=== PATIENT | male | born 1975 | race American Indian/Alaskan Native ===

== ENCOUNTER 2017-07-27 02:45 | Emergency (ER) | payer SELFPAY ==
[2017-07-27 02:59] VITALS: BP 111/78
[2017-07-27] MEDS ORDERED: FUL-GLO OP ONE (03:01)
[2017-07-27] MEDS ORDERED: TETRACAINE 0.5% OU ONE (03:03)
--- NOTE | 2017-07-27 06:03 | Emergency Department Report ---
ED Eye Problem HPI - General Chief complaint: Eye Problems Stated complaint: FLASH BURN EYES Time Seen by Provider: 07/27/17 05:56 Source: patient Mode of arrival: Ambulatory Limitations: No Limitations - History of Present Illness Initial comments: Patient is a 41-year-old male who presents to ED complaining of bilateral eye pain and redness times today. Patient states yesterday he was at work when a coworker was loading some mental. Patient states he did not have the protective eye on Wednesday directly at the [employer] after voiding fine which caused him to start experiencing eye pain. blurry vision and sensitivity to light. She states he objects for exercise. He denies loss of vision, headache. MD chief complaint: eye pain, eye redness -: Sudden Onset Description: sudden Location: both eyes Place: work If Injury: UV exposure Eye Symptoms: pain, itching, blurry vision, photophobia Severity: moderate Severity scale (0 -10): 4 Consistency: constant Associated Symptoms: none. denies: neck pain, nausea/vomiting, cough, rhinorrhea, fever - Related Data Previous Rx's Medication Instructions Recorded Last Taken Type Ketorolac Tromethamin 0.4%(Nf) 1 - 2 drops OP TID #5 ml 07/27/17 Unknown Rx [Acular Ls 0.4% Ophth Mary] Ofloxacin 0.3% [Ocuflox] 1 - 2 drops OP BID #5 ml 07/27/17 Unknown Rx Allergies Allergy/AdvReac Type Severity Reaction Status Date / Time Penicillins Allergy Rash Verified 07/27/17 02:53 ED Review of Systems ROS: Stated complaint: FLASH BURN EYES Other details as noted in HPI Constitutional: denies: chills, fever Eyes: denies: eye pain, eye discharge, vision change ENT: denies: ear pain, throat pain Respiratory: denies: cough, shortness of breath, wheezing Cardiovascular: denies: chest pain, palpitations Endocrine: no symptoms reported Gastrointestinal: denies: abdominal pain, nausea, diarrhea Genitourinary: denies: urgency, dysuria Musculoskeletal: denies: back pain, joint swelling, arthralgia Skin: denies: rash, lesions Neurological: denies: headache, weakness, paresthesias Psychiatric: denies: anxiety, depression Hematological/Lymphatic: denies: easy bleeding, easy bruising ED Past Medical Hx - Past Medical History Previous Medical History?: No - Social History Smoking Status: Current Every Day Smoker - Medications Home Medications: Home Medications Medication Instructions Recorded Confirmed Last Taken Type Ketorolac Tromethamin 0.4%(Nf) 1 - 2 drops OP TID #5 ml 07/27/17 Unknown Rx [Acular Ls 0.4% Ophth Mary] Ofloxacin 0.3% [Ocuflox] 1 - 2 drops OP BID #5 ml 07/27/17 Unknown Rx ED Physical Exam - General Limitations: No Limitations General appearance: alert, in no apparent distress - Head Head exam: Present: atraumatic, normocephalic - Eye Eye exam: Present: normal appearance, PERRL, EOMI, conjunctival injection. Absent: periorbital swelling, periorbital tenderness Pupils: Present: normal accommodation - Expanded Eye Exam Expanded Eyelids: Normal Inspection: Right Pupils: Regular, Round: Bilateral, Reactive: Bilateral Sclera/Conjunctival: Normal Inspection: Bilateral Anterior chamber: Normal Inspection: Bilateral Posterior chamber: Normal Inspection: Bilateral Visual acuity (R) = 20/: 70 Visual acuity (L) = 20/: 50 With correction: No - ENT ENT exam: Present: mucous membranes moist - Neck Neck exam: Present: normal inspection - Respiratory Respiratory exam: Present: normal lung sounds bilaterally. Absent: respiratory distress - Cardiovascular Cardiovascular Exam: Present: regular rate, normal rhythm. Absent: systolic murmur, diastolic murmur, rubs, gallop - GI/Abdominal GI/Abdominal exam: Present: soft, normal bowel sounds - Rectal Rectal exam: Present: deferred - Extremities Exam Extremities exam: Present: normal inspection - Back Exam Back exam: Present: normal inspection - Neurological Exam Neurological exam: Present: alert, oriented X3 - Psychiatric Psychiatric exam: Present: normal affect, normal mood - Skin Skin exam: Present: warm, dry, intact, normal color. Absent: rash ED Course Vital Signs 07/27/17 02:55 Temperature 97.6 F Pulse Rate 61 Respiratory 20 Rate Blood Pressure 111/78 O2 Sat by Pulse 98 Oximetry ED Medical Decision Making - Medical Decision Making 41-year-old male presents today to light exposure to both eyes. ED course: Visual acuity test done, normal findings Vision intact bilaterally No signs of corneal abrasion, no fluorescein uptake. I discussed this findings with the patient. I discussed with the patient to keep an eye aware from light until I becomes used to it. I discussed with patient given some eyedrops for pain. I discussed with the patient to wear dark glasses outside. I discussed the patient's symptoms worsen or new symptoms arise return to ED. I discussed the patient to follow-up with fiber optics technician. Vital signs are normal patient is in no acute or respiratory distress. Critical care attestation.: If time is entered above; I have spent that time in minutes in the direct care of this critically ill patient, excluding procedure time. 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 Use all your medications as you've been prescribed. We're protective care such as dark sunglasses to protect his eyes from light. Follow-up with computer systems support specialist if symptoms worsen If you have any worsening symptoms or develop new symptoms please return to ED immediately. Prescriptions: Ketorolac Tromethamin 0.4%(Nf) [Acular Ls 0.4% Ophth Mary] 1 - 2 drops OP TID #5 ml Ofloxacin 0.3% [Ocuflox] 1 - 2 drops OP BID #5 ml Referrals: PRIMARY CAREMD [Primary Care Provider] - 3-5 Days JUANITA ABBASI MD [Staff Physician] - 3-5 Days [facility] [Outside] - 3-5 Days Forms: Accompanied Note, Work/School Release Form(ED) Time of Disposition: 06:28
== END 2017-07-27 06:47 | disposition home or self-care (01) ==
LOC: ED 02:45
DX: H10.33 Unspecified acute conjunctivitis, bilateral (principal); F17.200 Nicotine dependence, unspecified, uncomplicated; Z88.0 Allergy status to penicillin; W89.0XXA Exposure to welding light (arc), initial encounter; Y93.89 Activity, other specified; Y99.8 Other external cause status; Y92.89 Other specified places as the place of occurrence of the external cause
CPT/HCPCS: 99283